=== PATIENT | female | born 1975 | race Caucasian/White ===

== ENCOUNTER 2021-12-31 08:30 | Emergency (ER) | payer OTHER ==
[~2021-12-31 08:30] MED LIST: AUGMENTIN 875-1 EACH PO; AUGMENTIN PO; COMBIVENT RESPIM4 GM INH; DELSYM30 MG/5 ML PO; FLONASE 0.05% N16 GM; HYDROXYZINE HCL25 MG PO; NORCO 7.5-3251 EACH PO; PREDNISONE 20 M20 MG PO; SERTRALINE HCL50 MG PO
[2021-12-31 09:16] LABS: HEMOGLOBIN 14.5 gm/dl (12.3-15.3); RED BLOOD COUNT 4.61 M/UL (4.00-5.10)
[2021-12-31 09:42] LABS: BUN/CREATININE RATIO 15 (0-10)
[2021-12-31] MEDS ORDERED: AMOX TR-K CLV1 EAC4 PO (13:04)
== END 2021-12-31 13:08 | disposition home or self-care (01) ==
LOC: ER1 08:30
PROVIDERS: Family Medicine
DX: J44.1 Chronic obstructive pulmonary disease with (acute) exacerbation (principal); F17.200 Nicotine dependence, unspecified, uncomplicated
CPT/HCPCS: 71046; 80048; 82550; 82553; 83880; 84484; 85025; 93005; 99285